=== PATIENT | male | born 1965 | race Caucasian/White ===

== ENCOUNTER 2019-03-01 10:19 | Inpatient (IN) | payer OTHER ==
[2019-03-01 10:54] VITALS: BMI 25.7
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
[2019-03-01] MEDS ORDERED: BISMUTH SUBSALICYLATE 262 MG/15 ML BTL PO PRN (12:07)
[2019-03-01] MEDS ORDERED: MAG HYDROX/AL HYDROX/SIMETH 30 ML UNIT-DOSE CUP PO PRN (12:07)
[2019-03-01] MEDS ORDERED: ACETAMINOPHEN 325 MG TABLET (FP) PO PRN ×2 (12:07)
[2019-03-01] MEDS ORDERED: IBUPROFEN 400 MG TABLET (FP) PO PRN (12:07)
[2019-03-01] MEDS ORDERED: MAGNESIUM HYDROX 2400MG/30ML ORAL SUSPENSION 30 ML CUP PO PRN (12:07)
[2019-03-01] MEDS ORDERED: MENTHOL/PHENOL 1 EACH UD MM PRN (12:07)
[2019-03-01] MEDS ORDERED: MAGNESIUM CITRATE 300 ML BOTTLE PO PRN (12:07)
[2019-03-01] MEDS: chlordiazePOXIDE HCL 25 MG CAPSULE PO PRN (13:23)
[2019-03-01 17:35] LABS: HEMATOCRIT 37.5 % (35.4-49); HEMOGLOBIN 12.5 GM/dL (11.7-16.9); MCH 34.6 pg (25.7-33.7); MCHC 33.5 g/dl (32.0-35.9); MEAN CELL VOLUME 103.3 fl (80-96); MEAN PLT VOLUME 8.6 fl (7.5-11.1); PLATELET COUNT 164 K/MM3 (134-434); RBC 3.63 M/mm3 (4.00-5.60); RDW 13.4 % (11.9-15.9); WHITE BLOOD COUNT 4.7 K/mm3 (4.0-10.0)
[2019-03-01] MEDS: chlordiazePOXIDE HCL 25 MG CAPSULE PO SCH ×2 (17:38→22:11)
[2019-03-01 17:49] LABS: ALBUMIN 3.4 g/dl (3.4-5.0); BILIRUBIN,TOTAL 0.6 mg/dL (0.2-1); BLOOD UREA NITROGEN 7.3 mg/dL (7-18); CALCIUM 8.7 mg/dL (8.5-10.1); CREATININE 0.7 mg/dL (0.55-1.3); POTASSIUM 4.1 mmol/L (3.5-5.1); TOT PROT 8.2 g/dl (6.4-8.2)
[2019-03-01] MEDS: MELATONIN 5 MG TABLETS PO PRN (22:11)
[2019-03-01] MEDS: METHOCARBAMOL 500 MG TABLET PO PRN (22:11)
[2019-03-01] MEDS: THIAMINE HCL 100 MG TABLET (FP) PO SCH (22:11)
[2019-03-02] MEDS: chlordiazePOXIDE HCL 25 MG CAPSULE PO SCH ×4 (05:54→22:23)
[2019-03-02] MEDS: NICOTINE 14 MG/24 HOURS TOPICAL PATCH TD SCH (10:30)
[2019-03-02] MEDS: PRENATAL VITAMINS W/ FOLIC ACID TABLET (FP) PO SCH (10:30)
--- NOTE | 2019-03-02 10:53 | PN ---
S CIWA - CIWA Score Nausea/Vomitin-No Nausea/No Vomiting Muscle Tremors: 4-Moderate,w/Arms Extend Anxiety: 4-Mod. Anxious/Guarded Agitation: 4-Moderately Restless Paroxysmal Sweats: 3 Orientation: 0-Oriented Tacttile Disturbances: 0-None Auditory Disturbances: 0-None Visual Disturbances: 0-None Headache: 1-Very Mild CIWA-Ar Total Score: 16 BHS Progress Note (SOAP) Subjective: lower back pain d/t fall sweats shakes interrupted sleep irritable headache Objective: 03/02/19 10:44 Vital Signs Temperature 97.7 F 03/02/19 09:36 Pulse Rate 68 03/02/19 09:36 Respiratory Rate 18 03/02/19 09:36 Blood Pressure 125/83 03/02/19 09:36 O2 Sat by Pulse Oximetry (%) Laboratory Tests 03/01/19 03/01/19 03/01/19 12:00 12:00 12:00 WBC 4.7 RBC 3.63 L Hgb 12.5 Hct 37.5 MCV 103.3 H MCH 34.6 H MCHC 33.5 RDW 13.4 Plt Count 164 MPV 8.6 Sodium 137 Potassium 4.1 Chloride 102 Carbon Dioxide 29 Anion Gap 6 L BUN 7.3 Creatinine 0.7 Est GFR (CKD-EPI)AfAm 126.64 Est GFR (CKD-EPI)NonAf 109.27 Random Glucose 93 Calcium 8.7 Total Bilirubin 0.6 AST 154 H ALT 135 H Alkaline Phosphatase 180 H Total Protein 8.2 Albumin 3.4 RPR Titer Nonreactive labs noted elevated liver enzymes; d/c tylenol will repeat labs aaox3 ambulating with cane safely no acute distress Assessment: 03/02/19 10:45 withdrawals Plan: continue detox increase fluids x-ray ordered lidocaine patch motrin 600mg prn
[2019-03-02] MEDS: LIDOCAINE 5% TOPICAL PATCH TP SCH (11:20)
--- NOTE | 2019-03-02 11:53 | EKG ---
Test Reason : Blood Pressure : / mmHG Vent. Rate : 059 BPM Atrial Rate : 059 BPM P-R Int : 128 ms QRS Dur : 078 ms QT Int : 432 ms P-R-T Axes : 021 017 041 degrees QTc Int : 427 ms SINUS BRADYCARDIA WITH SINUS ARRHYTHMIA OTHERWISE NORMAL ECG NO PREVIOUS ECGS AVAILABLE Confirmed by ASA VILLATORO MD ([id number]) on 03/02/2019 11:53:03 AM Referred By: Confirmed By:ASA VILLATORO MD
[2019-03-02] MEDS: chlordiazePOXIDE HCL 25 MG CAPSULE PO PRN (13:09)
[2019-03-02] MEDS: IBUPROFEN 600 MG TABLET (FP) PO PRN (17:56)
[2019-03-02] MEDS: MELATONIN 5 MG TABLETS PO PRN (21:50)
[2019-03-02] MEDS: THIAMINE HCL 100 MG TABLET (FP) PO SCH (21:50)
[2019-03-02] MEDS: METHOCARBAMOL 500 MG TABLET PO PRN (21:50)
[2019-03-02] MEDS: LIDOCAINE PATCH REMOVAL MC SCH (22:23)
[2019-03-03] MEDS: chlordiazePOXIDE HCL 25 MG CAPSULE PO SCH ×4 (06:02→22:05)
[2019-03-03] MEDS: METHOCARBAMOL 500 MG TABLET PO PRN ×2 (09:31→17:11)
[2019-03-03] MEDS: IBUPROFEN 600 MG TABLET (FP) PO PRN ×2 (09:31→17:10)
[2019-03-03] MEDS: NICOTINE 14 MG/24 HOURS TOPICAL PATCH TD SCH (10:39)
[2019-03-03] MEDS: amLODIPine BESYLATE 10 MG TABLET (FP) PO SCH (10:39)
[2019-03-03] MEDS: PRENATAL VITAMINS W/ FOLIC ACID TABLET (FP) PO SCH (10:39)
[2019-03-03] MEDS: LIDOCAINE 5% TOPICAL PATCH TP SCH (10:39)
[2019-03-03] MEDS: BACITRACIN 15 GM TUBE TOPICAL OINTMENT TP SCH (10:40)
--- NOTE | 2019-03-03 12:26 | PN ---
S CIWA - CIWA Score Nausea/Vomitin-No Nausea/No Vomiting Muscle Tremors: 3 Anxiety: 2 Agitation: 3 Paroxysmal Sweats: 2 Orientation: 0-Oriented Tacttile Disturbances: 0-None Auditory Disturbances: 0-None Visual Disturbances: 0-None Headache: 0-None Present CIWA-Ar Total Score: 10 BHS Progress Note (SOAP) Subjective: sweats body aches interrupted sleep agitation Objective: 03/03/19 12:23 Vital Signs Temperature 97 F L 03/03/19 10:21 Pulse Rate 89 03/03/19 10:21 Respiratory Rate 18 03/03/19 10:21 Blood Pressure 163/94 03/03/19 10:21 O2 Sat by Pulse Oximetry (%) Laboratory Tests 03/01/19 03/01/19 03/01/19 12:00 12:00 12:00 WBC 4.7 RBC 3.63 L Hgb 12.5 Hct 37.5 MCV 103.3 H MCH 34.6 H MCHC 33.5 RDW 13.4 Plt Count 164 MPV 8.6 Sodium 137 Potassium 4.1 Chloride 102 Carbon Dioxide 29 Anion Gap 6 L BUN 7.3 Creatinine 0.7 Est GFR (CKD-EPI)AfAm 126.64 Est GFR (CKD-EPI)NonAf 109.27 Random Glucose 93 Calcium 8.7 Total Bilirubin 0.6 AST 154 H ALT 135 H Alkaline Phosphatase 180 H Total Protein 8.2 Albumin 3.4 RPR Titer Nonreactive labs noted hypertension noted; pt states he was diagnosed but stopped taking medication. pt cannot remember the name of medication nor does he have a PCP or a pharmacy. pt will be prescribed a low dose of norvasc during his stay; pt in agreement aaox3 ambulating with cane safely will continue to monitor Assessment: 03/03/19 12:25 withdrawals Plan: continue detox increase fluids norvasc 10mg daily spinal x-ray pending.
[2019-03-03] MEDS: chlordiazePOXIDE HCL 25 MG CAPSULE PO PRN (15:02)
[2019-03-03] MEDS: MELATONIN 5 MG TABLETS PO PRN (22:05)
[2019-03-03] MEDS: THIAMINE HCL 100 MG TABLET (FP) PO SCH (22:05)
[2019-03-03] MEDS: LIDOCAINE PATCH REMOVAL MC SCH (22:16)
[2019-03-04] MEDS ORDERED: chlordiazePOXIDE HCL 10 MG CAPSULE PO PRN
[2019-03-04] MEDS: chlordiazePOXIDE HCL 10 MG CAPSULE PO SCH ×4 (06:11→22:02)
[2019-03-04] MEDS: PRENATAL VITAMINS W/ FOLIC ACID TABLET (FP) PO SCH (10:28)
[2019-03-04] MEDS: amLODIPine BESYLATE 10 MG TABLET (FP) PO SCH (10:28)
[2019-03-04] MEDS: METHOCARBAMOL 500 MG TABLET PO PRN (10:30)
[2019-03-04] MEDS: hydrOXYzine PAMOATE 25 MG CAPSULE (FP) PO PRN (10:36)
[2019-03-04] MEDS: NICOTINE 14 MG/24 HOURS TOPICAL PATCH TD SCH (10:36)
[2019-03-04] MEDS: BACITRACIN 15 GM TUBE TOPICAL OINTMENT TP SCH (10:36)
[2019-03-04] MEDS: LIDOCAINE 5% TOPICAL PATCH TP SCH (10:36)
[2019-03-04] MEDS: METHYL SALICYLATE/MENTHOL OINT 30 GM TUBE TP SCH ×2 (10:45→22:35)
--- NOTE | 2019-03-04 13:38 | PN ---
S CIWA - CIWA Score Nausea/Vomitin-No Nausea/No Vomiting Muscle Tremors: 3 Anxiety: 2 Agitation: 2 Paroxysmal Sweats: 2 Orientation: 0-Oriented Tacttile Disturbances: 0-None Auditory Disturbances: 0-None Visual Disturbances: 0-None Headache: 0-None Present CIWA-Ar Total Score: 9 BHS Progress Note (SOAP) Subjective: sweats chronic back pain knee pain interrupted sleep Objective: 03/04/19 13:39 Vital Signs Temperature 97.5 F L 03/04/19 13:21 Pulse Rate 83 03/04/19 13:21 Respiratory Rate 18 03/04/19 13:21 Blood Pressure 108/74 03/04/19 13:21 O2 Sat by Pulse Oximetry (%) Laboratory Tests 03/01/19 03/01/19 03/01/19 12:00 12:00 12:00 WBC 4.7 RBC 3.63 L Hgb 12.5 Hct 37.5 MCV 103.3 H MCH 34.6 H MCHC 33.5 RDW 13.4 Plt Count 164 MPV 8.6 Sodium 137 Potassium 4.1 Chloride 102 Carbon Dioxide 29 Anion Gap 6 L BUN 7.3 Creatinine 0.7 Est GFR (CKD-EPI)AfAm 126.64 Est GFR (CKD-EPI)NonAf 109.27 Random Glucose 93 Calcium 8.7 Total Bilirubin 0.6 AST 154 H ALT 135 H Alkaline Phosphatase 180 H Total Protein 8.2 Albumin 3.4 RPR Titer Nonreactive lumbar x-ray done; osteoarthritis was diagnosed by radiologist pt encouraged to see an orthopedic after detox; pt in agreement aaox3 ambulating no acute distress Assessment: 03/04/19 13:42 withdrawals Plan: continue detox analgesic balm copy of x-ray placed in chart for pt records.
[2019-03-04] MEDS: LIDOCAINE PATCH REMOVAL MC SCH (22:03)
[2019-03-04] MEDS: MELATONIN 5 MG TABLETS PO PRN (22:03)
[2019-03-04] MEDS: THIAMINE HCL 100 MG TABLET (FP) PO SCH (22:03)
[2019-03-04] MEDS: IBUPROFEN 400 MG TABLET (FP) PO PRN (22:04)
[2019-03-05] MEDS: IBUPROFEN 400 MG TABLET (FP) PO PRN ×2 (04:27→21:58)
[2019-03-05] MEDS: chlordiazePOXIDE HCL 10 MG CAPSULE PO SCH ×2 (06:15→16:59)
[2019-03-05] MEDS: amLODIPine BESYLATE 10 MG TABLET (FP) PO SCH (10:23)
[2019-03-05] MEDS: PRENATAL VITAMINS W/ FOLIC ACID TABLET (FP) PO SCH (10:23)
[2019-03-05] MEDS: hydrOXYzine PAMOATE 25 MG CAPSULE (FP) PO PRN ×2 (10:24→16:59)
[2019-03-05] MEDS: METHYL SALICYLATE/MENTHOL OINT 30 GM TUBE TP SCH ×2 (10:24→23:34)
[2019-03-05] MEDS: METHOCARBAMOL 500 MG TABLET PO PRN (10:24)
[2019-03-05] MEDS: BACITRACIN 15 GM TUBE TOPICAL OINTMENT TP SCH (10:24)
[2019-03-05] MEDS: NICOTINE 14 MG/24 HOURS TOPICAL PATCH TD SCH (10:24)
[2019-03-05] MEDS: LIDOCAINE 5% TOPICAL PATCH TP SCH (10:24)
--- NOTE | 2019-03-05 16:47 | PN ---
S CIWA - CIWA Score Nausea/Vomitin-No Nausea/No Vomiting Muscle Tremors: 2 Anxiety: 1-Mildly Anxious Agitation: 1-Slight > Activity Paroxysmal Sweats: 2 Orientation: 0-Oriented Tacttile Disturbances: 0-None Auditory Disturbances: 0-None Visual Disturbances: 0-None Headache: 0-None Present CIWA-Ar Total Score: 6 BHS Progress Note (SOAP) Subjective: Back pain, tremor, anxious, interrupted sleep. Patient requested for vistaril to be increased to help with anxiety and withdrawal sxs. Objective: 03/05/19 16:46 Last Vital Signs Temp Pulse Resp BP Pulse Ox 96.9 F L 68 18 137/69 03/05/19 15:56 03/05/19 15:56 03/05/19 15:56 03/05/19 15:56 Elevated b/p: has htn, on med Laboratory Tests 03/01/19 03/01/19 03/01/19 12:00 12:00 12:00 WBC 4.7 RBC 3.63 L Hgb 12.5 Hct 37.5 MCV 103.3 H MCH 34.6 H MCHC 33.5 RDW 13.4 Plt Count 164 MPV 8.6 Sodium 137 Potassium 4.1 Chloride 102 Carbon Dioxide 29 Anion Gap 6 L BUN 7.3 Creatinine 0.7 Est GFR (CKD-EPI)AfAm 126.64 Est GFR (CKD-EPI)NonAf 109.27 Random Glucose 93 Calcium 8.7 Total Bilirubin 0.6 AST 154 H ALT 135 H Alkaline Phosphatase 180 H Total Protein 8.2 Albumin 3.4 RPR Titer Nonreactive Labs reviewed: elevated LFTs noted Assessment: 03/05/19 16:47 Withdrawal sxs Noted with HTN and elevated LFTs Plan: Continue detox Encouraged PO water intake Can discharge patient later tomorrow after result of repeated LFTs if trending downward and for him to follow up with PCP HTN: continue norvasc, monitor b/p Elevated LFTs: most likely due to alcoholism, possible HCV; repeat AST/ALT/Alk phos
[2019-03-05] MEDS: THIAMINE HCL 100 MG TABLET (FP) PO SCH (21:56)
[2019-03-05] MEDS: MELATONIN 5 MG TABLETS PO PRN (21:56)
[2019-03-05] MEDS: LIDOCAINE PATCH REMOVAL MC SCH (23:34)
[2019-03-06] MEDS ORDERED: chlordiazePOXIDE HCL 10 MG CAPSULE PO ONE (05:00)
[2019-03-06 10:15] LABS: ALK PHOS 136 U/L (45-117); SGOT/AST 136 U/L (15-37); SGPT/ALT 131 U/L (13-61)
--- NOTE | 2019-03-06 10:33 | DS ---
[facility] Detox Discharge Summary Admission Date: 03/01/19 Discharge Date: 03/06/19 - History Present History: Alcohol Dependence - Physical Exam Results Vital Signs: Vital Signs Temperature 97.3 F L 03/06/19 05:30 Pulse Rate 60 03/06/19 05:30 Respiratory Rate 18 03/06/19 05:30 Blood Pressure 114/65 03/06/19 05:30 O2 Sat by Pulse Oximetry (%) - Treatment Hospital Course: Detox Protocol Followed, Detoxed Safely, Responded well, Discharged Condition Good, Rehab Referral Accepted Patient has Accepted a Rehab Referral to: pt referred to inpatient rehab - Medication Discharge Medications: Ambulatory Orders NK [No Known Home Medication] 03/01/19 - Diagnosis (1) Alcohol dependence with withdrawal Current Visit: Yes Status: Chronic Qualifiers: Complication of substance-induced condition: uncomplicated Qualified Code(s ): F10.230 - Alcohol dependence with withdrawal, uncomplicated (2) Asthma Current Visit: Yes Status: Chronic Qualifiers: Asthma severity: mild Asthma complication type: unspecified (3) Hypertension Current Visit: Yes Status: Chronic Qualifiers: Hypertension type: essential hypertension Qualified Code(s): I10 - Essential (primary) hypertension (4) Osteoarthritis Current Visit: Yes Status: Chronic Qualifiers: Osteoarthritis location: spine Spinal region: unspecified - AMA Did Patient Leave Against Medical Advice: No
[2019-03-06] MEDS: PRENATAL VITAMINS W/ FOLIC ACID TABLET (FP) PO SCH (10:52)
[2019-03-06] MEDS: amLODIPine BESYLATE 10 MG TABLET (FP) PO SCH (10:52)
[2019-03-06] MEDS: METHYL SALICYLATE/MENTHOL OINT 30 GM TUBE TP SCH (10:52)
[2019-03-06] MEDS: BACITRACIN 15 GM TUBE TOPICAL OINTMENT TP SCH (10:52)
[2019-03-06] MEDS: LIDOCAINE 5% TOPICAL PATCH TP SCH (10:52)
[2019-03-06] MEDS: NICOTINE 14 MG/24 HOURS TOPICAL PATCH TD SCH (10:53)
[2019-03-06] MEDS: hydrOXYzine PAMOATE 25 MG CAPSULE (FP) PO PRN (10:55)
[2019-03-06] MEDS: METHOCARBAMOL 500 MG TABLET PO PRN (11:50)
[2019-03-06 14:03] VITALS: BP 126/82; PULSE 88; TEMP 97.5
== END 2019-03-06 15:10 | disposition other institution (70) | DRG 775 ==
LOC: YASAS 10:19 → Y6N 12:37
PROVIDERS: ADMIT Allergy & Immunology; ATTEND Allergy & Immunology
PROC: HZ2ZZZZ Detoxification Services for Substance Abuse Treatment (ICD-10-PCS; principal; 2019-03-01)
DX: F10.230 Alcohol dependence with withdrawal, uncomplicated (principal); F17.210 Nicotine dependence, cigarettes, uncomplicated; I10 Essential (primary) hypertension; J45.909 Unspecified asthma, uncomplicated; M19.90 Unspecified osteoarthritis, unspecified site; R94.5 Abnormal results of liver function studies; Z59.0 Homelessness
CPT/HCPCS: 36415; 72100-TC-FY; 80053; 84075; 84450; 84460; 85027; 86593; 93005; 93010

== ENCOUNTER 2019-03-06 15:14 | Inpatient (IN) | payer OTHER ==
--- NOTE | 2019-03-06 13:00 | HP ---
[facility] Rehab Assess/Revision - Admission History Admitted to Rehab from[facility] - Findings Detox History & Physical reviewed: Yes Concur with findings: Yes Inpatient Rehab Admission - Rehab Decision to Admit Inpatient rehab admission?: Yes - Initial Determination Are CD services needed?: Yes Free of communicable disease: Yes Not in need of hospitalization: Yes - Rehab Admission Criteria Previous failed treatment: Yes Poor recovery environment: Yes Comorbidities: Yes Lacks judgement: Yes Patient is meeting Inpatient Rehab admission criteria:: Yes
[2019-03-06] MEDS ORDERED: MENTHOL/PHENOL 1 EACH UD MM PRN (15:45)
[2019-03-06] MEDS ORDERED: MAG HYDROX/AL HYDROX/SIMETH 30 ML UNIT-DOSE CUP PO PRN (15:45)
[2019-03-06] MEDS ORDERED: P-EPHED 60MG/TRIPROLIDI 2.5MG TABLET PO PRN (15:45)
[2019-03-06] MEDS ORDERED: guaiFENesin 200 MG/10 ML 10 ML UNIT-DOSE CUPS PO PRN (15:45)
[2019-03-06] MEDS ORDERED: LOPERAMIDE HCL 2 MG CAPSULE PO PRN (15:45)
[2019-03-06] MEDS ORDERED: MAGNESIUM CITRATE 300 ML BOTTLE PO PRN (15:45)
[2019-03-06] MEDS ORDERED: NICOTINE POLACRILEX 2 MG GUM BUC PRN (15:45)
[2019-03-06] MEDS ORDERED: MAGNESIUM HYDROX 2400MG/30ML ORAL SUSPENSION 30 ML CUP PO PRN (15:45)
--- NOTE | 2019-03-06 15:47 | PN ---
[facility] Progress Note Note: Patient transferred from [address] [place] [address] to rehab for alcohol dependence. PMH includes HTN, tobacco dependence and asthma. Labs reviewed. Has elevated LFTS, will repeat level in 48 hours.
[2019-03-06] MEDS: IBUPROFEN 400 MG TABLET (FP) PO PRN (16:43)
[2019-03-06] MEDS: THIAMINE HCL 100 MG TABLET (FP) PO SCH (21:16)
[2019-03-06] MEDS: MELATONIN 5 MG TABLETS PO PRN (21:16)
[2019-03-06] MEDS: ACETAMINOPHEN 325 MG TABLET (FP) PO PRN (21:16)
[2019-03-07] MEDS: IBUPROFEN 400 MG TABLET (FP) PO PRN ×2 (05:45→21:23)
[2019-03-07] MEDS: amLODIPine BESYLATE 10 MG TABLET (FP) PO SCH (10:00)
[2019-03-07] MEDS: NICOTINE 14 MG/24 HOURS TOPICAL PATCH TD SCH (10:00)
[2019-03-07] MEDS: PRENATAL VITAMINS W/ FOLIC ACID TABLET (FP) PO SCH (10:00)
[2019-03-07] MEDS: hydrOXYzine PAMOATE 50 MG CAPSULE (FP) PO PRN (10:01)
--- NOTE | 2019-03-07 10:54 | PN ---
S Progress Note Note: Pt states he fell down and has back pain. Would like Tyler whitaker and cream for face. PT states he is homeless- looking for [facility] and also for perm housing. Would like the medications given at detox to be continued here in rehab : BAcitracin ordered Aveeno ordered Lidoderm patch
[2019-03-07] MEDS: LIDOCAINE 5% TOPICAL PATCH TP SCH (13:06)
[2019-03-07] MEDS: BACITRACIN 15 GM TUBE TOPICAL OINTMENT TP SCH (13:07)
[2019-03-07] MEDS: MELATONIN 5 MG TABLETS PO PRN (21:23)
[2019-03-07] MEDS: THIAMINE HCL 100 MG TABLET (FP) PO SCH (21:23)
[2019-03-07] MEDS: LIDOCAINE PATCH REMOVAL MC SCH (21:23)
[2019-03-08] MEDS: IBUPROFEN 400 MG TABLET (FP) PO PRN ×2 (06:25→21:13)
[2019-03-08] MEDS: amLODIPine BESYLATE 10 MG TABLET (FP) PO SCH (10:14)
[2019-03-08] MEDS: PRENATAL VITAMINS W/ FOLIC ACID TABLET (FP) PO SCH (10:14)
[2019-03-08] MEDS: NICOTINE 14 MG/24 HOURS TOPICAL PATCH TD SCH (10:15)
[2019-03-08] MEDS: LIDOCAINE 5% TOPICAL PATCH TP SCH (10:15)
[2019-03-08] MEDS: hydrOXYzine PAMOATE 50 MG CAPSULE (FP) PO PRN ×2 (10:16→21:13)
[2019-03-08] MEDS: ACETAMINOPHEN 325 MG TABLET (FP) PO PRN (10:17)
[2019-03-08] MEDS: BACITRACIN 15 GM TUBE TOPICAL OINTMENT TP SCH (10:19)
[2019-03-08 12:11] LABS: ALBUMIN 3.2 g/dl (3.4-5.0); BILIRUBIN,TOTAL 0.4 mg/dL (0.2-1); BLOOD UREA NITROGEN 13.3 mg/dL (7-18); CALCIUM 9.1 mg/dL (8.5-10.1); CREATININE 0.9 mg/dL (0.55-1.3); POTASSIUM 4.3 mmol/L (3.5-5.1)
[2019-03-08] MEDS: LIDOCAINE PATCH REMOVAL MC SCH (21:12)
[2019-03-08] MEDS: MELATONIN 5 MG TABLETS PO PRN (21:12)
[2019-03-08] MEDS: THIAMINE HCL 100 MG TABLET (FP) PO SCH (21:12)
--- NOTE | 2019-03-09 10:05 | PN ---
[facility] Progress Note Note: Pt c/o anxiety and requests to psych consult. Nurse Mayra reports that patient was crying yesterday due to recent loss of . Repeat labs reviewed. Vital Signs - 24 hr 03/09/19 03/09/19 03/09/19 00:30 03:30 06:48 Temperature 97.6 F Pulse Rate 79 Respiratory 18 18 18 Rate Blood Pressure 121/81 03/09/19 09:30 Temperature Pulse Rate 88 Respiratory 18 Rate Blood Pressure 114/80 Laboratory Tests 03/08/19 08:20 Sodium 137 Potassium 4.3 Chloride 106 Carbon Dioxide 25 Anion Gap 6 L BUN 13.3 Creatinine 0.9 Est GFR (CKD-EPI)AfAm 114.21 Est GFR (CKD-EPI)NonAf 98.54 Random Glucose 146 H Calcium 9.1 Total Bilirubin 0.4 AST 137 H ALT 136 H Alkaline Phosphatase 140 H Total Protein 8.0 Albumin 3.2 L LFTs still elevated A/P s/p detox hx alcohol use disorder hx HTN Recent Loss of family member Maintain safety follow up with psych consult increase po fluids.
[2019-03-09] MEDS: BACITRACIN 15 GM TUBE TOPICAL OINTMENT TP SCH ×2 (10:08→21:21)
[2019-03-09] MEDS: amLODIPine BESYLATE 10 MG TABLET (FP) PO SCH (10:08)
[2019-03-09] MEDS: LIDOCAINE 5% TOPICAL PATCH TP SCH (10:08)
[2019-03-09] MEDS: PRENATAL VITAMINS W/ FOLIC ACID TABLET (FP) PO SCH (10:08)
[2019-03-09] MEDS: hydrOXYzine PAMOATE 50 MG CAPSULE (FP) PO PRN (10:09)
[2019-03-09] MEDS: NICOTINE 14 MG/24 HOURS TOPICAL PATCH TD SCH (10:09)
[2019-03-09] MEDS ORDERED: METHOCARBAMOL 500 MG TABLET PO ONE (10:22)
[2019-03-09] MEDS: IBUPROFEN 600 MG TABLET (FP) PO PRN ×2 (14:28→21:21)
[2019-03-09] MEDS: MELATONIN 5 MG TABLETS PO PRN (21:20)
[2019-03-09] MEDS: LIDOCAINE PATCH REMOVAL MC SCH (21:20)
[2019-03-09] MEDS: THIAMINE HCL 100 MG TABLET (FP) PO SCH (21:20)
[2019-03-10] MEDS: IBUPROFEN 600 MG TABLET (FP) PO PRN ×2 (06:07→21:09)
[2019-03-10] MEDS: COLLOIDAL OATMEAL 1 BAR EACH TP PRN (06:07)
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
[2019-03-10] MEDS: PRENATAL VITAMINS W/ FOLIC ACID TABLET (FP) PO SCH (10:06)
[2019-03-10] MEDS: LIDOCAINE 5% TOPICAL PATCH TP SCH (10:06)
[2019-03-10] MEDS: amLODIPine BESYLATE 10 MG TABLET (FP) PO SCH (10:06)
[2019-03-10] MEDS: NICOTINE 14 MG/24 HOURS TOPICAL PATCH TD SCH (10:06)
[2019-03-10] MEDS: BACITRACIN 15 GM TUBE TOPICAL OINTMENT TP SCH ×2 (10:07→21:11)
[2019-03-10] MEDS: cloNIDine HCL 0.1 MG TABLET PO PRN (10:08)
[2019-03-10] MEDS: hydrOXYzine PAMOATE 50 MG CAPSULE (FP) PO PRN ×2 (10:09→21:10)
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
[2019-03-10] MEDS: THIAMINE HCL 100 MG TABLET (FP) PO SCH (21:09)
[2019-03-10] MEDS: MELATONIN 5 MG TABLETS PO PRN (21:09)
[2019-03-10] MEDS: LIDOCAINE PATCH REMOVAL MC SCH (21:09)
[2019-03-11] MEDS: IBUPROFEN 600 MG TABLET (FP) PO PRN ×3 (06:27→21:25)
[2019-03-11] MEDS: hydrOXYzine PAMOATE 50 MG CAPSULE (FP) PO PRN ×2 (10:11→21:15)
[2019-03-11] MEDS: BACITRACIN 15 GM TUBE TOPICAL OINTMENT TP SCH ×2 (10:11→21:13)
[2019-03-11] MEDS: PRENATAL VITAMINS W/ FOLIC ACID TABLET (FP) PO SCH (10:11)
[2019-03-11] MEDS: amLODIPine BESYLATE 10 MG TABLET (FP) PO SCH (10:11)
[2019-03-11] MEDS: cloNIDine HCL 0.1 MG TABLET PO PRN (10:11)
[2019-03-11] MEDS: LIDOCAINE 5% TOPICAL PATCH TP SCH (10:12)
[2019-03-11] MEDS: NICOTINE 14 MG/24 HOURS TOPICAL PATCH TD SCH (10:12)
[2019-03-11] MEDS: THIAMINE HCL 100 MG TABLET (FP) PO SCH (21:13)
[2019-03-11] MEDS: LIDOCAINE PATCH REMOVAL MC SCH (21:13)
[2019-03-11] MEDS: MELATONIN 5 MG TABLETS PO PRN (21:15)
[2019-03-12] MEDS: IBUPROFEN 600 MG TABLET (FP) PO PRN ×2 (05:57→12:02)
[2019-03-12] MEDS: hydrOXYzine PAMOATE 50 MG CAPSULE (FP) PO PRN ×3 (05:59→14:28)
[2019-03-12] MEDS: COLLOIDAL OATMEAL 1 BAR EACH TP PRN (06:32)
[2019-03-12] MEDS: cloNIDine HCL 0.1 MG TABLET PO PRN (10:04)
[2019-03-12] MEDS: PRENATAL VITAMINS W/ FOLIC ACID TABLET (FP) PO SCH (10:04)
[2019-03-12] MEDS: amLODIPine BESYLATE 10 MG TABLET (FP) PO SCH (10:04)
[2019-03-12] MEDS: BACITRACIN 15 GM TUBE TOPICAL OINTMENT TP SCH ×2 (10:04→21:55)
[2019-03-12] MEDS: LIDOCAINE 5% TOPICAL PATCH TP SCH (10:05)
[2019-03-12] MEDS: NICOTINE 14 MG/24 HOURS TOPICAL PATCH TD SCH (10:05)
[2019-03-12] MEDS: THIAMINE HCL 100 MG TABLET (FP) PO SCH (21:54)
[2019-03-12] MEDS: MELATONIN 5 MG TABLETS PO PRN (21:55)
[2019-03-12] MEDS: LIDOCAINE PATCH REMOVAL MC SCH (21:55)
[2019-03-13] MEDS: hydrOXYzine PAMOATE 50 MG CAPSULE (FP) PO PRN ×3 (09:58→21:31)
[2019-03-13] MEDS: LIDOCAINE 5% TOPICAL PATCH TP SCH (09:58)
[2019-03-13] MEDS: PRENATAL VITAMINS W/ FOLIC ACID TABLET (FP) PO SCH (09:58)
[2019-03-13] MEDS: BACITRACIN 15 GM TUBE TOPICAL OINTMENT TP SCH ×2 (09:58→21:31)
[2019-03-13] MEDS: amLODIPine BESYLATE 10 MG TABLET (FP) PO SCH (09:59)
[2019-03-13] MEDS: IBUPROFEN 600 MG TABLET (FP) PO PRN ×2 (09:59→21:31)
[2019-03-13] MEDS: cloNIDine HCL 0.1 MG TABLET PO PRN (09:59)
[2019-03-13] MEDS: NICOTINE 14 MG/24 HOURS TOPICAL PATCH TD SCH (10:02)
[2019-03-13 12:31] LABS: BILIRUBIN,TOTAL 0.4 mg/dL (0.2-1); BLOOD UREA NITROGEN 16.4 mg/dL (7-18); CALCIUM 8.9 mg/dL (8.5-10.1); CREATININE 0.9 mg/dL (0.55-1.3); POTASSIUM 4.7 mmol/L (3.5-5.1); TOT PROT 7.1 g/dl (6.4-8.2)
--- NOTE | 2019-03-13 14:48 | PN ---
[facility] Progress Note Note: Vital Signs Temperature 98 F 03/13/19 06:51 Pulse Rate 83 03/13/19 09:30 Respiratory Rate 18 03/13/19 09:30 Blood Pressure 117/67 03/13/19 09:30 O2 Sat by Pulse Oximetry (%) Laboratory Tests 03/08/19 03/13/19 08:20 07:25 Sodium 137 136 Potassium 4.3 4.7 Chloride 106 104 Carbon Dioxide 25 29 Anion Gap 6 L 3 L BUN 13.3 16.4 Creatinine 0.9 0.9 Est GFR (CKD-EPI)AfAm 114.21 114.21 Est GFR (CKD-EPI)NonAf 98.54 98.54 Random Glucose 146 H 77 Calcium 9.1 8.9 Total Bilirubin 0.4 0.4 AST 137 H 112 H ALT 136 H 125 H Alkaline Phosphatase 140 H 150 H Total Protein 8.0 7.1 Albumin 3.2 L 3.0 L Patient seen for follow up labs. Patient noted sleeping in bed this morning and did not go to morning group. Patient states " my back hurts but I will go to group". Also requested psych follow up for anxiety. ROS: + lbp-level 08/31, denies shakes, sweating and n/v/d PE: alert and oriented x 3 skin warm and dry +perrla, eoms intact bl ext full rom, amb ad paul no tremors mildly anxious A/P: LBP-treated with lidocaine patch elevated lfts anxiety LFTS improving continue oral fluids psych consult for anxiety
[2019-03-13] MEDS: MELATONIN 5 MG TABLETS PO PRN (21:28)
[2019-03-13] MEDS: THIAMINE HCL 100 MG TABLET (FP) PO SCH (21:28)
[2019-03-13] MEDS: LIDOCAINE PATCH REMOVAL MC SCH (21:32)
[2019-03-14] MEDS: amLODIPine BESYLATE 10 MG TABLET (FP) PO SCH (10:06)
[2019-03-14] MEDS: LIDOCAINE 5% TOPICAL PATCH TP SCH (10:06)
[2019-03-14] MEDS: PRENATAL VITAMINS W/ FOLIC ACID TABLET (FP) PO SCH (10:06)
[2019-03-14] MEDS: cloNIDine HCL 0.1 MG TABLET PO PRN (10:06)
[2019-03-14] MEDS: BACITRACIN 15 GM TUBE TOPICAL OINTMENT TP SCH ×2 (10:06→21:11)
[2019-03-14] MEDS: IBUPROFEN 600 MG TABLET (FP) PO PRN ×2 (10:07→21:14)
[2019-03-14] MEDS: NICOTINE 14 MG/24 HOURS TOPICAL PATCH TD SCH (10:07)
[2019-03-14] MEDS: hydrOXYzine PAMOATE 50 MG CAPSULE (FP) PO PRN ×3 (10:08→21:13)
--- NOTE | 2019-03-14 10:22 | PN ---
Psychiatric Progress Note Vital Signs: Vital Signs Period Temp Pulse Resp BP Sys/Escamilla Pulse Ox Last 24 Hr 97.9 F 86 18-18 104/65 Date of Session: 03/14/19 Chief Complaint:: "I'm feeling depressed and anxious" HPI: 53 years old Hiapanic male with history of Mood Disorder R/O Bipolar Disorder and PMH of Asthma, HTN admitted from detox on 03/06/19 for inpatient rehabilitation for alcohol Current Medications: Active Medications Generic Name Dose Route Start Last Admin Trade Name Freq PRN Reason Stop Dose Admin Al Hydroxide/Mg Hydroxide 30 ml 03/06/19 15:45 Mylanta Oral Suspension - PO Q6H PRN DYSPEPSIA Amlodipine Besylate 10 mg 03/07/19 10:00 03/14/19 10:06 Norvasc - PO 10 mg DAILY ANA Administration Bacitracin 1 applic 03/09/19 22:00 03/14/19 10:06 Bacitracin - TP 1 applic BID ANA Administration Clonidine 0.1 mg 03/10/19 09:56 03/14/19 10:06 Catapres - PO 0.1 mg BID PRN Administration ANXIETY Colloidal Oatmeal 1 applic 03/07/19 10:58 03/12/19 06:32 Aveeno Soap - TP 1 applic DAILY PRN Administration HYGEINE Eucalyptus/Menthol/Phenol/Sorbitol 1 each 03/06/19 15:45 Cepastat Lozenge - MM Q4H PRN SORE THROAT Guaifenesin 10 ml 03/06/19 15:45 Robitussin - PO Q6H PRN COUGH Hydroxyzine Pamoate 50 mg 03/10/19 09:49 03/14/19 10:08 Vistaril - PO 50 mg Q4H PRN Administration ANXIETY Ibuprofen 600 mg 03/09/19 10:21 03/14/19 10:07 Motrin - PO 600 mg Q6H PRN Administration Pain Level 4-6 Lidocaine 1 patch 03/07/19 11:00 03/14/19 10:06 Lidoderm Patch - TP 1 patch DAILY ANA Administration Loperamide HCl 4 mg 03/06/19 15:45 Imodium - PO Q6H PRN DIARRHEA Magnesium Citrate 300 ml 03/06/19 15:45 Citroma - PO Q48H PRN CONSTIPATION Magnesium Hydroxide 30 ml 03/06/19 15:45 Milk Of Magnesia - PO DAILY PRN CONSTIPATION Melatonin 10 mg 03/10/19 11:13 03/13/19 21:28 Melatonin PO 10 mg HS PRN Administration INSOMNIA Miscellaneous 1 each 03/07/19 22:00 03/13/19 21:32 Lidoderm Patch Removal MC 1 each DAILY@2200 ANA Administration Nicotine 14 mg 03/07/19 10:00 03/14/19 10:07 Nicoderm Patch - TD Not Given DAILY ANA Nicotine Polacrilex 2 mg 03/06/19 15:45 Nicorette Gum - BUC Q2H PRN NICOTINE REPLACEMENT RX Multivit/Folic Acid/Iron 1 tab 03/07/19 10:00 03/14/19 10:06 Vitamins (Sjr) - PO 1 tab DAILY ANA Administration Pseudoephedrine/Triprolidine 1 combo 03/06/19 15:45 Actifed - PO TID PRN NASAL CONGESTION Thiamine HCl 100 mg 03/06/19 22:00 03/13/19 21:28 Vitamin B1 - PO 100 mg HS ANA Administration Provider note:: Patient reports that he has not been doing well. Reports that the he has been feeling depressed and anxious. Denies lack of sleep, appetite or concentration as well as feeling hopeless, worthless. According to nursing staff, he participates in unit activities and does not come across as depressed. Mental Status Exam - Mental Status Exam Alert and Oriented to: Time, Place, Person Cognitive Function: Fair Patient Appearance: Well Groomed Mood: Depressed, Anxious Affect: Normal Range Patient Behavior: Cooperative Speech Pattern: Clear Voice Loudness: Normal Thought Process: Intact, Goal Oriented Thought Disorder: Not Present Hallucinations: Denies Suicidal Ideation: Denies Homicidal Ideation: Denies Insight/Judgement: Fair Sleep: Fair Appetite: Good Muscle strength/Tone: Rigidity Gait/Station: Normal Psychiatric Treatment Plan - Problem List (1) Mood disorder Current Visit: Yes (2) Bipolar disorder Current Visit: Yes (3) Alcohol-induced mood disorder Current Visit: Yes (4) Alcohol-induced sleep disorder Current Visit: Yes (5) Alcohol dependence Current Visit: Yes (6) Nicotine dependence Current Visit: Yes (7) Asthma Current Visit: No Qualifiers: Asthma severity: mild Asthma complication type: unspecified (8) Hypertension Current Visit: No Qualifiers: Hypertension type: essential hypertension Qualified Code(s): I10 - Essential (primary) hypertension (9) Osteoarthritis Current Visit: No Qualifiers: Osteoarthritis location: spine Spinal region: unspecified Initial treatment plan: 1) Continue Vistaril 50 mg po Q 4hrs prn for anxiety. 2 ) Continue inpatient rehabilitation
[2019-03-14] MEDS: THIAMINE HCL 100 MG TABLET (FP) PO SCH (21:10)
[2019-03-14] MEDS: MELATONIN 5 MG TABLETS PO PRN (21:10)
[2019-03-14] MEDS: LIDOCAINE PATCH REMOVAL MC SCH (21:11)
[2019-03-15] MEDS: cloNIDine HCL 0.1 MG TABLET PO PRN (09:33)
[2019-03-15] MEDS: amLODIPine BESYLATE 10 MG TABLET (FP) PO SCH (09:33)
[2019-03-15] MEDS: PRENATAL VITAMINS W/ FOLIC ACID TABLET (FP) PO SCH (09:33)
[2019-03-15] MEDS: hydrOXYzine PAMOATE 50 MG CAPSULE (FP) PO PRN (09:34)
[2019-03-15] MEDS: IBUPROFEN 600 MG TABLET (FP) PO PRN (09:35)
[2019-03-15] MEDS: LIDOCAINE 5% TOPICAL PATCH TP SCH (09:37)
[2019-03-15] MEDS: NICOTINE 14 MG/24 HOURS TOPICAL PATCH TD SCH (10:29)
[2019-03-15] MEDS: BACITRACIN 15 GM TUBE TOPICAL OINTMENT TP SCH ×2 (10:30→21:14)
--- NOTE | 2019-03-15 11:24 | PN ---
[facility] Progress Note (SOAP) Subjective: Patient c/o pain, lower right ankle, hx of surgery in that ankle. Objective: 03/15/19 11:20 Vital Signs Period Temp Pulse Resp BP Sys/Escamilla Pulse Ox Last 24 Hr 97.5 F 83-86 18-18 127-128/68-72 P/E: General: no apparent distress HEENTM: PERRLA Neck: supple Lungs: clear Heart: s1 s2 Extremities/skin: healed surgical scar, right ankle, posterior aspect, no edema noted, +Pulse Skin: raised, red postules scattered on arms and legs 03/15/19 11:22 Assessment: Pain, right ankle Rash, allergic 03/15/19 11:22 Plan: Ankle pain: edith-whitaker & muscle relaxant ordered, motrin increased Rash: hydrocortisone ordered.
[2019-03-15] MEDS: METHYL SALICYLATE/MENTHOL OINT 30 GM TUBE TP SCH (11:44)
[2019-03-15] MEDS: CYCLOBENZAPRINE HCL 10 MG TABLET (FP) PO SCH ×2 (13:48→21:11)
[2019-03-15] MEDS: MELATONIN 5 MG TABLETS PO PRN (21:11)
[2019-03-15] MEDS: THIAMINE HCL 100 MG TABLET (FP) PO SCH (21:11)
[2019-03-15] MEDS: LIDOCAINE PATCH REMOVAL MC SCH (21:12)
[2019-03-16] MEDS: HYDROCORTISONE 1% TOPICAL CREAM 30 GM TUBE TP PRN ×2 (05:45→09:41)
[2019-03-16] MEDS: CYCLOBENZAPRINE HCL 10 MG TABLET (FP) PO SCH ×3 (05:45→21:21)
[2019-03-16] MEDS: amLODIPine BESYLATE 10 MG TABLET (FP) PO SCH (09:40)
[2019-03-16] MEDS: PRENATAL VITAMINS W/ FOLIC ACID TABLET (FP) PO SCH (09:40)
[2019-03-16] MEDS: cloNIDine HCL 0.1 MG TABLET PO PRN (09:40)
[2019-03-16] MEDS: hydrOXYzine PAMOATE 50 MG CAPSULE (FP) PO PRN ×2 (09:40→21:21)
[2019-03-16] MEDS: LIDOCAINE 5% TOPICAL PATCH TP SCH (09:41)
[2019-03-16] MEDS: NICOTINE 14 MG/24 HOURS TOPICAL PATCH TD SCH (09:43)
[2019-03-16] MEDS: BACITRACIN 15 GM TUBE TOPICAL OINTMENT TP SCH ×2 (09:44→21:21)
[2019-03-16] MEDS: METHYL SALICYLATE/MENTHOL OINT 30 GM TUBE TP SCH (09:44)
[2019-03-16] MEDS: THIAMINE HCL 100 MG TABLET (FP) PO SCH (21:21)
[2019-03-16] MEDS: MELATONIN 5 MG TABLETS PO PRN (21:21)
[2019-03-16] MEDS: LIDOCAINE PATCH REMOVAL MC SCH (22:03)
[2019-03-17] MEDS: CYCLOBENZAPRINE HCL 10 MG TABLET (FP) PO SCH ×3 (06:09→21:16)
[2019-03-17] MEDS: COLLOIDAL OATMEAL 1 BAR EACH TP PRN (06:09)
[2019-03-17] MEDS: cloNIDine HCL 0.1 MG TABLET PO PRN (09:51)
[2019-03-17] MEDS: amLODIPine BESYLATE 10 MG TABLET (FP) PO SCH (09:51)
[2019-03-17] MEDS: LIDOCAINE 5% TOPICAL PATCH TP SCH (09:51)
[2019-03-17] MEDS: PRENATAL VITAMINS W/ FOLIC ACID TABLET (FP) PO SCH (09:51)
[2019-03-17] MEDS: METHYL SALICYLATE/MENTHOL OINT 30 GM TUBE TP SCH (09:52)
[2019-03-17] MEDS: hydrOXYzine PAMOATE 50 MG CAPSULE (FP) PO PRN (09:52)
[2019-03-17] MEDS: NICOTINE 14 MG/24 HOURS TOPICAL PATCH TD SCH (09:53)
[2019-03-17] MEDS: BACITRACIN 15 GM TUBE TOPICAL OINTMENT TP SCH ×2 (09:55→21:19)
[2019-03-17] MEDS: THIAMINE HCL 100 MG TABLET (FP) PO SCH (21:15)
[2019-03-17] MEDS: MELATONIN 5 MG TABLETS PO PRN (21:16)
[2019-03-17] MEDS: LIDOCAINE PATCH REMOVAL MC SCH (21:16)
[2019-03-17] MEDS ORDERED: PT OWN MED DRAWER 7, Y5N ONE (21:18)
[2019-03-18] MEDS: HYDROCORTISONE 1% TOPICAL CREAM 30 GM TUBE TP PRN (06:16)
[2019-03-18] MEDS: CYCLOBENZAPRINE HCL 10 MG TABLET (FP) PO SCH ×3 (06:33→21:25)
[2019-03-18] MEDS: amLODIPine BESYLATE 10 MG TABLET (FP) PO SCH (09:33)
[2019-03-18] MEDS: NICOTINE 14 MG/24 HOURS TOPICAL PATCH TD SCH (09:33)
[2019-03-18] MEDS: LIDOCAINE 5% TOPICAL PATCH TP SCH (09:34)
[2019-03-18] MEDS: METHYL SALICYLATE/MENTHOL OINT 30 GM TUBE TP SCH (09:34)
[2019-03-18] MEDS: BACITRACIN 15 GM TUBE TOPICAL OINTMENT TP SCH ×2 (09:34→21:27)
[2019-03-18] MEDS: PRENATAL VITAMINS W/ FOLIC ACID TABLET (FP) PO SCH (09:34)
[2019-03-18] MEDS: hydrOXYzine PAMOATE 50 MG CAPSULE (FP) PO PRN ×2 (11:56→21:26)
[2019-03-18] MEDS: THIAMINE HCL 100 MG TABLET (FP) PO SCH (21:25)
[2019-03-18] MEDS: IBUPROFEN 400 MG TABLET (FP) PO PRN (21:26)
[2019-03-18] MEDS: LIDOCAINE PATCH REMOVAL MC SCH (21:27)
[2019-03-19] MEDS: CYCLOBENZAPRINE HCL 10 MG TABLET (FP) PO SCH ×3 (06:23→21:11)
[2019-03-19] MEDS: LIDOCAINE 5% TOPICAL PATCH TP SCH (09:38)
[2019-03-19] MEDS: NICOTINE 14 MG/24 HOURS TOPICAL PATCH TD SCH (09:38)
[2019-03-19] MEDS: METHYL SALICYLATE/MENTHOL OINT 30 GM TUBE TP SCH (09:39)
[2019-03-19] MEDS: BACITRACIN 15 GM TUBE TOPICAL OINTMENT TP SCH ×2 (09:39→21:12)
[2019-03-19] MEDS: amLODIPine BESYLATE 10 MG TABLET (FP) PO SCH (09:39)
[2019-03-19] MEDS: PRENATAL VITAMINS W/ FOLIC ACID TABLET (FP) PO SCH (09:39)
[2019-03-19] MEDS: HYDROCORTISONE 1% TOPICAL CREAM 30 GM TUBE TP PRN (09:40)
[2019-03-19] MEDS: hydrOXYzine PAMOATE 50 MG CAPSULE (FP) PO PRN ×2 (09:40→21:12)
[2019-03-19] MEDS: MELATONIN 5 MG TABLETS PO PRN (21:11)
[2019-03-19] MEDS: THIAMINE HCL 100 MG TABLET (FP) PO SCH (21:11)
[2019-03-19] MEDS: LIDOCAINE PATCH REMOVAL MC SCH (21:12)
[2019-03-20] MEDS: CYCLOBENZAPRINE HCL 10 MG TABLET (FP) PO SCH ×3 (06:23→21:13)
[2019-03-20] MEDS ORDERED: ALBUTEROL SO4 2.5/IPRATROPIUM 0.5 INH SOL 3 ML VIAL.NEB. NEB PRN (08:04)
--- NOTE | 2019-03-20 08:19 | PN ---
[facility] Progress Note Note: ASKED TYO SEE PATIENT FOR COMPLAINT OF CHEST PAIN. CLIENT REPORTS CHEST PAIN SINCE LAST NIGHT GIVEN ROBAXIN W/O RELIEF. CONT TO COMPLAIN OF CHEST PAIN . POINT ACROSS HIS DIAPHRAGM AND LEFT CHEST WALL. REPORTS SOB, DENIES N,V, FEVER, CHILLS, NUMBNESS Vital Signs Temperature 98.5 F 03/20/19 07:42 Pulse Rate 95 H 03/20/19 07:42 Respiratory Rate 03/20/19 07:42 Blood Pressure 120/77 03/20/19 07:42 O2 Sat by Pulse Oximetry (%) PATIENT SEEN LYING IN BED WITH FACIAL GRIMACE AND SOB. HE IS A/O X3 SKIN IS CLAMMY, HANDS TREMULOUS CHEST CTAB, O2 SAT 97% CV- RRR A- GERD VS C.P. P- EKG SINUS RHYTHM WITH PSVC AND PVC WHEN COMPARED WITH PREVIOUS CHANGES NOTED 03/01/2019 EKG NSR, RAJNI MYLANTA NOW DUONEB X 1 DOSE CASE D/W DR. SMART RECOMMENDS TRANSFERRING CLIENT TO [facility] FOR CARDIAC W/U 2/2 TO CHANGES NOTED ON EKG CLIENT ENDORSED TRO DR. BONILLA AT [facility] ER
[2019-03-20] MEDS: METHYL SALICYLATE/MENTHOL OINT 30 GM TUBE TP SCH (11:00)
[2019-03-20] MEDS: BACITRACIN 15 GM TUBE TOPICAL OINTMENT TP SCH ×2 (11:00→21:13)
[2019-03-20] MEDS: NICOTINE 14 MG/24 HOURS TOPICAL PATCH TD SCH (11:00)
[2019-03-20] MEDS: LIDOCAINE 5% TOPICAL PATCH TP SCH (11:00)
[2019-03-20] MEDS: PRENATAL VITAMINS W/ FOLIC ACID TABLET (FP) PO SCH (11:02)
[2019-03-20] MEDS: amLODIPine BESYLATE 10 MG TABLET (FP) PO SCH (11:02)
--- NOTE | 2019-03-20 14:21 | EKG ---
Test Reason : Blood Pressure : / mmHG Vent. Rate : 092 BPM Atrial Rate : 092 BPM P-R Int : 150 ms QRS Dur : 078 ms QT Int : 368 ms P-R-T Axes : 039 003 019 degrees QTc Int : 455 ms NORMAL SINUS RHYTHM NORMAL ECG WHEN COMPARED WITH ECG OF 01-MAR-2019 19:36, VENT. RATE HAS INCREASED BY 33 BPM Confirmed by Emily Fair ([id number]) on 03/20/2019 2:21:15 PM Referred By: Confirmed By:Emily Fair
--- NOTE | 2019-03-20 16:22 | PN ---
[facility] Progress Note Note: Patient returned to [facility] after transfer to ED for chest pain this morning. Patient evaluated at ER and had EKG done demonstrating rate 92, NM 150, QRS 78, QTc 455, normal axis. Patient cleared to return to [facility]. Vital Signs Period Temp Pulse Resp BP Sys/Escamilla Pulse Ox Last 24 Hr 98.5 F-98.8 F 79-95 18-20 115-120/72-77 ROS: denies chest pain, sob, dizziness and headache. PE: alert and oriented x 3 skin warm and dry car s1s2, rrr resp cta bl, no wheezes or rales ext full rom, amb ad paul no tremors A/P: s/p ER transfer for chest pain alcohol dependence patient medically stable at this time continue rehab services
[2019-03-20] MEDS: IBUPROFEN 400 MG TABLET (FP) PO PRN (18:03)
[2019-03-20] MEDS: THIAMINE HCL 100 MG TABLET (FP) PO SCH (21:10)
[2019-03-20] MEDS: MELATONIN 5 MG TABLETS PO PRN (21:11)
[2019-03-20] MEDS: hydrOXYzine PAMOATE 50 MG CAPSULE (FP) PO PRN (21:12)
[2019-03-20] MEDS: LIDOCAINE PATCH REMOVAL MC SCH (21:14)
[2019-03-21] MEDS: CYCLOBENZAPRINE HCL 10 MG TABLET (FP) PO SCH ×3 (06:37→21:20)
[2019-03-21] MEDS: METHYL SALICYLATE/MENTHOL OINT 30 GM TUBE TP SCH (09:41)
[2019-03-21] MEDS: BACITRACIN 15 GM TUBE TOPICAL OINTMENT TP SCH ×2 (09:41→21:21)
[2019-03-21] MEDS: PRENATAL VITAMINS W/ FOLIC ACID TABLET (FP) PO SCH (09:42)
[2019-03-21] MEDS: IBUPROFEN 400 MG TABLET (FP) PO PRN (09:42)
[2019-03-21] MEDS: NICOTINE 14 MG/24 HOURS TOPICAL PATCH TD SCH (09:42)
[2019-03-21] MEDS: LIDOCAINE 5% TOPICAL PATCH TP SCH (09:42)
[2019-03-21] MEDS: amLODIPine BESYLATE 10 MG TABLET (FP) PO SCH (09:42)
[2019-03-21] MEDS: hydrOXYzine PAMOATE 50 MG CAPSULE (FP) PO PRN (09:43)
[2019-03-21] MEDS: HYDROCORTISONE 1% TOPICAL CREAM 30 GM TUBE TP PRN (09:43)
[2019-03-21] MEDS: LIDOCAINE PATCH REMOVAL MC SCH (21:20)
[2019-03-21] MEDS: MELATONIN 5 MG TABLETS PO PRN (21:20)
[2019-03-21] MEDS: THIAMINE HCL 100 MG TABLET (FP) PO SCH (21:20)
[2019-03-22] MEDS: CYCLOBENZAPRINE HCL 10 MG TABLET (FP) PO SCH ×3 (06:34→21:12)
[2019-03-22] MEDS: COLLOIDAL OATMEAL 1 BAR EACH TP PRN (06:34)
[2019-03-22] MEDS: PRENATAL VITAMINS W/ FOLIC ACID TABLET (FP) PO SCH (09:32)
[2019-03-22] MEDS: BACITRACIN 15 GM TUBE TOPICAL OINTMENT TP SCH ×2 (09:32→21:13)
[2019-03-22] MEDS: amLODIPine BESYLATE 10 MG TABLET (FP) PO SCH (09:32)
[2019-03-22] MEDS: NICOTINE 14 MG/24 HOURS TOPICAL PATCH TD SCH (09:33)
[2019-03-22] MEDS: LIDOCAINE 5% TOPICAL PATCH TP SCH (09:33)
[2019-03-22] MEDS: METHYL SALICYLATE/MENTHOL OINT 30 GM TUBE TP SCH (09:33)
[2019-03-22] MEDS: hydrOXYzine PAMOATE 50 MG CAPSULE (FP) PO PRN ×2 (09:35→17:27)
[2019-03-22] MEDS: HYDROCORTISONE 1% TOPICAL CREAM 30 GM TUBE TP PRN (09:36)
[2019-03-22] MEDS: MELATONIN 5 MG TABLETS PO PRN (21:12)
[2019-03-22] MEDS: THIAMINE HCL 100 MG TABLET (FP) PO SCH (21:12)
[2019-03-22] MEDS: LIDOCAINE PATCH REMOVAL MC SCH (21:13)
[2019-03-23] MEDS: CYCLOBENZAPRINE HCL 10 MG TABLET (FP) PO SCH ×3 (06:35→21:29)
[2019-03-23] MEDS: amLODIPine BESYLATE 10 MG TABLET (FP) PO SCH (10:00)
[2019-03-23] MEDS: PRENATAL VITAMINS W/ FOLIC ACID TABLET (FP) PO SCH (10:00)
[2019-03-23] MEDS: LIDOCAINE 5% TOPICAL PATCH TP SCH (10:00)
[2019-03-23] MEDS: hydrOXYzine PAMOATE 50 MG CAPSULE (FP) PO PRN ×2 (10:00→21:31)
[2019-03-23] MEDS: METHYL SALICYLATE/MENTHOL OINT 30 GM TUBE TP SCH (10:00)
[2019-03-23] MEDS: BACITRACIN 15 GM TUBE TOPICAL OINTMENT TP SCH ×2 (10:00→21:32)
[2019-03-23] MEDS: NICOTINE 14 MG/24 HOURS TOPICAL PATCH TD SCH (10:01)
[2019-03-23] MEDS: IBUPROFEN 400 MG TABLET (FP) PO PRN ×2 (10:01→21:31)
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
--- NOTE | 2019-03-23 14:40 | EKG ---
Test Reason : Blood Pressure : / mmHG Vent. Rate : 096 BPM Atrial Rate : 096 BPM P-R Int : 146 ms QRS Dur : 076 ms QT Int : 368 ms P-R-T Axes : 045 002 021 degrees QTc Int : 464 ms SINUS RHYTHM WITH PREMATURE SUPRAVENTRICULAR COMPLEXES AND WITH OCCASIONAL PREMATURE VENTRICULAR COMPLEXES OTHERWISE NORMAL ECG WHEN COMPARED WITH ECG OF 01-MAR-2019 19:36, PREMATURE VENTRICULAR COMPLEXES ARE NOW PRESENT PREMATURE SUPRAVENTRICULAR COMPLEXES ARE NOW PRESENT VENT. RATE HAS INCREASED BY 37 BPM T WAVE AMPLITUDE HAS DECREASED IN LATERAL LEADS Confirmed by ASA VILLATORO MD ([id number]) on 03/23/2019 2:39:50 PM Referred By: Confirmed By:ASA VILLATORO MD
[2019-03-23] MEDS: THIAMINE HCL 100 MG TABLET (FP) PO SCH (21:29)
[2019-03-23] MEDS: MELATONIN 5 MG TABLETS PO PRN (21:29)
[2019-03-23] MEDS: LIDOCAINE PATCH REMOVAL MC SCH (21:30)
[2019-03-24] MEDS: CYCLOBENZAPRINE HCL 10 MG TABLET (FP) PO SCH (05:58)
[2019-03-24 07:02] VITALS: BP 106/73; PULSE 91; TEMP 98
[2019-03-24] MEDS: PRENATAL VITAMINS W/ FOLIC ACID TABLET (FP) PO SCH (09:32)
[2019-03-24] MEDS: amLODIPine BESYLATE 10 MG TABLET (FP) PO SCH (09:32)
[2019-03-24] MEDS: LIDOCAINE 5% TOPICAL PATCH TP SCH (09:34)
[2019-03-24] MEDS: METHYL SALICYLATE/MENTHOL OINT 30 GM TUBE TP SCH (09:34)
[2019-03-24] MEDS: BACITRACIN 15 GM TUBE TOPICAL OINTMENT TP SCH (09:34)
[2019-03-24] MEDS: NICOTINE 14 MG/24 HOURS TOPICAL PATCH TD SCH (09:34)
--- NOTE | 2019-03-24 10:00 | DS ---
[facility] Rehab Discharge Summary - [facility] Rehab Discharge Summary Admission Date: 03/06/19 Discharge Date: 03/24/19 - History Present History: Alcohol dependence - Discharge Physical Exam Vital Signs: Vital Signs Temperature 98.0 F 03/24/19 07:01 Pulse Rate 91 H 03/24/19 07:01 Respiratory Rate 18 03/24/19 07:01 Blood Pressure 106/73 03/24/19 07:01 O2 Sat by Pulse Oximetry (%) - Treatment Discharge Condition: Discharge condition good - Medication Discharge Medications: Ambulatory Orders Amlodipine Besylate [Norvasc -] 10 mg PO DAILY #30 tablet 03/23/19 - Medication-Assisted Treatment (MAT) Medication-Assisted Treatment (MAT): No MAT Follow-up Referral: Patient has aftercare arranged for [facility] at [facility]. Patient left unit with tech, medically stable, denies SI/HI. - Discharge Instructions Diet, activity, other medical instructions: Diet:JONATHAN as tolerated Activity: reg as tolerated Other medical instructions: follow up with PCP as recommended - Follow-up Referral Minutes to complete discharge: 30 - AMA Did Patient Leave Against Medical Advice: No
== END 2019-03-24 09:38 | disposition home or self-care (01) | DRG 772 ==
LOC: YASAS 15:14 → Y3W 15:15
PROVIDERS: ADMIT Neuromusculoskeletal Medicine & OMM; ATTEND Neuromusculoskeletal Medicine & OMM
PROC: HZ42ZZZ Group Counseling for Substance Abuse Treatment, Cognitive-Behavioral (ICD-10-PCS; principal; 2019-03-06)
DX: F10.20 Alcohol dependence, uncomplicated (principal); F17.210 Nicotine dependence, cigarettes, uncomplicated; F10.24 Alcohol dependence with alcohol-induced mood disorder; F10.282 Alcohol dependence with alcohol-induced sleep disorder; F31.9 Bipolar disorder, unspecified; I10 Essential (primary) hypertension; J45.20 Mild intermittent asthma, uncomplicated; M19.90 Unspecified osteoarthritis, unspecified site; M25.571 Pain in right ankle and joints of right foot; M54.5 Low back pain; R07.9 Chest pain, unspecified; R21 Rash and other nonspecific skin eruption; Z87.828 Personal history of other (healed) physical injury and trauma; Z91.410 Personal history of adult physical and sexual abuse; Z59.0 Homelessness
CPT/HCPCS: 36415; 80053; 93005; 93010; 94640; J0735

== ENCOUNTER 2019-03-20 09:07 | Emergency (ER) | payer OTHER ==
[2019-03-20 09:22] VITALS: TEMP 97.5; BMI 25.9
--- NOTE | 2019-03-20 09:25 | PDOC ---
Attending Attestation - Resident Resident Name: Brian Gonzalez - HPI HPI: 03/20/19 11:07 Pt presents to the ED complaining of the acute onset of epigastric pain that awoke him from sleep yesterday night. Pain was constant, non radiating, 9/10 in severity. Denies nausea or vomiting, fever or shortness of breath. Denies prior cardiac history. Currently pain free. - Physicial Exam PE: 03/20/19 11:21 Agree with resident exam. Patient is alert and oriented and in no acute distress. Lungs are clear. CV: rrr no murmurs. Abdomen: soft, non tender, non distended, no guarding or rebound. - Medical Decision Making 03/20/19 11:25 Pt presents to the ED complaining of epigastric pain. Currently chest pain free. EKG is normal. Will check labs and troponin and likely discharge home if troponin is negative.
--- NOTE | 2019-03-20 09:39 | PDOC ---
History of Present Illness - General Chief Complaint: Chest Pain Stated Complaint: CP Time Seen by Provider: 03/20/19 09:25 - History of Present Illness Initial Comments: 53 year old male with PMH of HTN, BPD, OA, and EtOH abuse (currently in rehab) with chest pain starting at 4:30 AM of sudden onset that spanned across her lower chest. Describes the pain as a non-radiating, non-pleuritic, non- exertional pressure. Does admit that he was thinking about his when he went to bed who just recently from an CO. Denies fevers, chills, nausea, vomiting, diarrhea, or other symptoms. 03/20/19 09:37 Past History - Past Medical History Allergies/Adverse Reactions: Allergies Allergy/AdvReac Type Severity Reaction Status Date / Time No Known Allergies Allergy Verified 03/20/19 09:11 Home Medications: Ambulatory Orders NK [No Known Home Medication] 03/01/19 Anemia: No Asthma: Yes Cancer: No Cardiac Disorders: No CVA: No COPD: No CHF: No Dementia: No Diabetes: No GI Disorders: No Disorders: No HTN: Yes (NOT ON MEDICATIONS) Hypercholesterolemia: No Kidney Stones: No Liver Disease: No Seizures: Yes (2019) Thyroid Disease: No - Surgical History Abdominal Surgery: No Appendectomy: No Cardiac Surgery: No Cholecystectomy: No Lung Surgery: No Neurologic Surgery: No Orthopedic Surgery: Yes (RIGHT FOOT SURGERY) - Reproductive History Testicular Surgery: No - Psycho Social/Smoking Cessation Hx Smoking History: Unknown if ever smoked Have you smoked in the past 12 months: No Number of Cigarettes Smoked Daily: 10 Information on smoking cessation initiated: No 'Breaking Loose' booklet given: 03/01/19 Hx Alcohol Use: No Drug/Substance Use Hx: No Hx Substance Use Treatment: Yes Review of Systems - Review of Systems Constitutional: No: Chills, Diaphoresis, Fever, Loss of Appetite HEENTM: No: Eye Pain, Blurred Vision, Tearing Respiratory: No: Cough, Orthopnea, Shortness of Breath Cardiac (ROS): Yes: Chest Pain. No: Edema, Irregular Heart Rate ABD/GI: No: Diarrhea, Nausea, Vomiting : No: Dysuria, Discharge, Frequency Musculoskeletal: No: Back Pain, Gout, Joint Pain Integumentary: No: Lesions, Lumps, Pallor Neurological: No: Headache, Numbness, Paresthesia Psychiatric: No: Anxiety, Depression *Physical Exam - Vital Signs Last Vital Signs Temp Pulse Resp BP Pulse Ox 97.5 F L 101 H 16 122/77 100 03/20/19 09:14 03/20/19 09:14 03/20/19 09:14 03/20/19 09:14 03/20/19 09:14 - Physical Exam General Appearance: Yes: Nourished, Appropriately Dressed. No: Apparent Distress HEENT: positive: EOMI, HIEN, Normal ENT Inspection, Normal Voice Neck: positive: Trachea midline, Normal Thyroid, Supple. negative: Tender, Rigid Respiratory/Chest: positive: Lungs Clear, Normal Breath Sounds. negative: Chest Tender, Respiratory Distress Cardiovascular: positive: Regular Rhythm, Regular Rate Gastrointestinal/Abdominal: positive: Normal Bowel Sounds, Flat, Soft. negative : Tender Lymphatic: negative: Adenopathy, Tenderness Musculoskeletal: positive: Normal Inspection. negative: Decreased Range of Motion Extremity: positive: Normal Capillary Refill, Normal Inspection, Normal Range of Motion. negative: Tender Integumentary: positive: Normal Color, Dry, Warm Neurologic: positive: Fully Oriented, Alert, Normal Mood/Affect, Normal Response , Motor Strength 5/5 Heart Score/ECG Review - History History: Slightly suspicious - Electrocardiogram EKG: Normal - Age Age: 45-65 - Risk Factors Based on the list above the patient has:: No risk factors known - Troponin Troponin: </= normal limit - Score Heart Score - Total: 1 ED Treatment Course - LABORATORY CBC & Chemistry Diagram: 03/20/19 09:48 03/20/19 09:48 Medical Decision Making - Medical Decision Making 53 year old male currently rehabbing for etoh abuse presenting with sudden onset chest pain. EKG demonstrating rate 92, IA 150, QRS 78, QTc 455, normal axis and no ST or t-wave changes. Heart score 4 and patient improved prior to my interview. Will DC to [facility]. 03/20/19 10:21 Discharge - Discharge Information Problems reviewed: Yes Clinical Impression/Diagnosis: Chest pain Qualifiers: Chest pain type: unspecified Qualified Code(s): R07.9 - Chest pain, unspecified Condition: Improved Disposition: HOME - Admission No - Follow up/Referral Referrals: [facility] [Provider Group] - Patient Discharge Instructions Patient Printed Discharge Instructions: DI for Atypical Chest Pain Additional Instructions: Please take Tylenol or Motrin for any pains that you have. IF you have severe chest pain that does not improve. Please see the PCP on this sheet within a week of getting clean at your rehab. Please return to the ED if you have new or worsening symptoms. - Post Discharge Activity
[2019-03-20 10:24] LABS: BASO % 0.5 % (0-2.0); EOS % 1.8 % (0-4.5); HEMATOCRIT 41.5 % (35.4-49); HEMOGLOBIN 14.1 GM/dL (11.7-16.9); LYMPH % 28.1 % (8-40); MCH 33.5 pg (25.7-33.7); MEAN CELL VOLUME 98.4 fl (80-96); MEAN PLT VOLUME 8.2 fl (7.5-11.1); MONO % 7.2 % (3.8-10.2); NEUT % 62.4 % (42.8-82.8); PLATELET COUNT 160 K/MM3 (134-434); RBC 4.22 M/mm3 (4.00-5.60); WHITE BLOOD COUNT 5.6 K/mm3 (4.0-10.0)
[2019-03-20 10:35] LABS: INR 1.24 (0.83-1.09); PROTHROMBIN TIME (PATIENT) 14.7 SEC (9.7-13.0)
[2019-03-20] MEDS ORDERED: ACETAMINOPHEN 500 MG TABLET (FP) PO ONE (10:47)
[2019-03-20 10:58] LABS: ALBUMIN 3.1 g/dl (3.4-5.0); ALK PHOS 136 U/L (45-117); ANION GAP 7 MMOL/L (8-16); BILIRUBIN,TOTAL 0.6 mg/dL (0.2-1); BLOOD UREA NITROGEN 12.4 mg/dL (7-18); CALCIUM 8.9 mg/dL (8.5-10.1); CHLORIDE 100 mmol/L (98-107); CO2 25 mmol/L (21-32); CREATININE 0.8 mg/dL (0.55-1.3); GLUCOSE,RANDOM 101 mg/dL (74-106); SGOT/AST 110 U/L (15-37); SGPT/ALT 133 U/L (13-61); SODIUM 132 mmol/L (136-145); TOT PROT 8.1 g/dl (6.4-8.2)
[2019-03-20] MEDS ORDERED: ACETAMINOPHEN 325 MG TABLET (FP) ONE (11:03)
[2019-03-20 11:41] VITALS: BP 104/79; PULSE 97
== END 2019-03-20 12:20 | disposition home or self-care (01) ==
LOC: JER 09:07
DX: R10.13 Epigastric pain (principal); I10 Essential (primary) hypertension; G40.909 Epilepsy, unspecified, not intractable, without status epilepticus; M19.90 Unspecified osteoarthritis, unspecified site; F10.10 Alcohol abuse, uncomplicated; Z59.0 Homelessness; Z87.09 Personal history of other diseases of the respiratory system
CPT/HCPCS: 36415; 71045-TC-FY; 80053; 82550; 84484; 85025; 85610; 99283-25

== ENCOUNTER 2020-01-29 11:06 | Inpatient (IN) | payer OTHER ==
[2020-01-29] MEDS ORDERED: MAGNESIUM CITRATE 300 ML BOTTLE PO PRN (12:52)
[2020-01-29] MEDS ORDERED: MAGNESIUM HYDROX 2400MG/30ML ORAL SUSPENSION 30 ML CUP PO PRN (12:52)
[2020-01-29] MEDS ORDERED: IBUPROFEN 400 MG TABLET (FP) PO PRN (12:52)
[2020-01-29] MEDS ORDERED: MENTHOL/PHENOL 1 EACH UD MM PRN (12:52)
[2020-01-29] MEDS ORDERED: BISMUTH SUBSALICYLATE 262 MG/15 ML BTL PO PRN (12:52)
[2020-01-29] MEDS ORDERED: NICOTINE POLACRILEX 2 MG GUM BUC PRN (12:52)
[2020-01-29] MEDS ORDERED: MAG HYDROX/AL HYDROX/SIMETH 30 ML UNIT-DOSE CUP PO PRN (12:52)
[2020-01-29] MEDS ORDERED: ACETAMINOPHEN 325 MG TABLET (FP) PO PRN (12:52)
[2020-01-29] MEDS ORDERED: chlordiazePOXIDE HCL 25 MG CAPSULE PO PRN (12:52)
[2020-01-29 13:44] VITALS: BMI 24.0
[2020-01-29] MEDS: hydrOXYzine PAMOATE 25 MG CAPSULE (FP) PO SCH ×3 (14:37→22:26)
[2020-01-29] MEDS: PRENATAL VITAMINS W/ FOLIC ACID TABLET (FP) PO SCH (14:37)
[2020-01-29] MEDS: NICOTINE 14 MG/24 HOURS TOPICAL PATCH TD SCH (14:38)
[2020-01-29 17:20] LABS: HEMATOCRIT 43.4 % (35.4-49); HEMOGLOBIN 14.4 GM/dL (11.7-16.9); MCH 33.1 pg (25.7-33.7); MCHC 33.1 g/dl (32.0-35.9); MEAN CELL VOLUME 99.9 fl (80-96); MEAN PLT VOLUME 8.8 fl (7.5-11.1); PLATELET COUNT 178 K/MM3 (134-434); RBC 4.35 M/mm3 (4.00-5.60); RDW 12.6 % (11.9-15.9); WHITE BLOOD COUNT 6.3 K/mm3 (4.0-10.0)
[2020-01-29 17:21] LABS: POTASSIUM 4.2 mmol/L (3.5-5.1)
[2020-01-29 17:24] LABS: BLOOD UREA NITROGEN 13.2 mg/dL (7-18); CALCIUM 9.7 mg/dL (8.5-10.1)
[2020-01-29 17:27] LABS: CREATININE 0.9 mg/dL (0.55-1.3)
[2020-01-29 17:29] LABS: BILIRUBIN,TOTAL 0.5 mg/dL (0.2-1); TOT PROT 9.1 g/dl (6.4-8.2)
[2020-01-29] MEDS: chlordiazePOXIDE HCL 25 MG CAPSULE PO SCH ×2 (17:51→22:26)
[2020-01-29] MEDS: ONDANSETRON *ODT* 4 MG TABLET SL PRN (17:55)
[2020-01-29] MEDS: ACETAMINOPHEN 325 MG TABLET (FP) PO PRN (17:56)
[2020-01-29] MEDS ORDERED: TRIMETHOBENZAMIDE HCL 200MG/2ML INJ IM PRN (19:48)
[2020-01-29] MEDS ORDERED: PANTOPRAZOLE 40 MG TABLET PO ONE (19:48)
[2020-01-29] MEDS: THIAMINE HCL 100 MG TABLET (FP) PO SCH (22:26)
[2020-01-29] MEDS: MELATONIN 5 MG TABLETS PO SCH (22:26)
[2020-01-30] MEDS: chlordiazePOXIDE HCL 25 MG CAPSULE PO SCH ×4 (05:27→22:14)
[2020-01-30] MEDS: hydrOXYzine PAMOATE 25 MG CAPSULE (FP) PO SCH ×5 (05:27→22:16)
[2020-01-30] MEDS ORDERED: ALBUTEROL SO4 HFA INHALER IH PRN (10:09)
[2020-01-30] MEDS: PANTOPRAZOLE 40 MG TABLET PO SCH (10:20)
[2020-01-30] MEDS: PRENATAL VITAMINS W/ FOLIC ACID TABLET (FP) PO SCH (10:20)
[2020-01-30] MEDS: METHOCARBAMOL 500 MG TABLET PO PRN (10:21)
[2020-01-30] MEDS: NICOTINE 14 MG/24 HOURS TOPICAL PATCH TD SCH (10:22)
[2020-01-30] MEDS ORDERED: ONDANSETRON *ODT* 4 MG TABLET SL ONE (10:24)
[2020-01-30] MEDS: amLODIPine BESYLATE 10 MG TABLET (FP) PO SCH (11:29)
[2020-01-30] MEDS: ACETAMINOPHEN 325 MG TABLET (FP) PO PRN (17:02)
[2020-01-30] MEDS: LIDOCAINE 5% TOPICAL PATCH TP SCH (18:11)
[2020-01-30] MEDS: MELATONIN 5 MG TABLETS PO SCH (22:12)
[2020-01-30] MEDS: THIAMINE HCL 100 MG TABLET (FP) PO SCH (22:12)
[2020-01-30] MEDS: LIDOCAINE PATCH REMOVAL MC SCH (22:14)
[2020-01-31] MEDS: chlordiazePOXIDE HCL 25 MG CAPSULE PO SCH ×4 (05:24→22:08)
[2020-01-31] MEDS: hydrOXYzine PAMOATE 25 MG CAPSULE (FP) PO SCH ×5 (05:24→22:07)
[2020-01-31] MEDS: amLODIPine BESYLATE 10 MG TABLET (FP) PO SCH (10:39)
[2020-01-31] MEDS: PRENATAL VITAMINS W/ FOLIC ACID TABLET (FP) PO SCH (10:39)
[2020-01-31] MEDS: PANTOPRAZOLE 40 MG TABLET PO SCH (10:39)
[2020-01-31] MEDS: NICOTINE 14 MG/24 HOURS TOPICAL PATCH TD SCH (10:39)
[2020-01-31] MEDS: LIDOCAINE 5% TOPICAL PATCH TP SCH (10:40)
[2020-01-31] MEDS: ONDANSETRON *ODT* 4 MG TABLET SL PRN (12:17)
[2020-01-31] MEDS: METHOCARBAMOL 500 MG TABLET PO PRN (12:53)
[2020-01-31] MEDS ORDERED: MASKS NR ONE (17:38)
[2020-01-31] MEDS: ACETAMINOPHEN 325 MG TABLET (FP) PO PRN (17:46)
[2020-01-31] MEDS: THIAMINE HCL 100 MG TABLET (FP) PO SCH (22:08)
[2020-01-31] MEDS: MELATONIN 5 MG TABLETS PO SCH (22:08)
[2020-01-31] MEDS: LIDOCAINE PATCH REMOVAL MC SCH (22:09)
[2020-02-01] MEDS ORDERED: chlordiazePOXIDE HCL 10 MG CAPSULE PO PRN
[2020-02-01] MEDS: hydrOXYzine PAMOATE 25 MG CAPSULE (FP) PO SCH ×5 (05:56→22:10)
[2020-02-01] MEDS: chlordiazePOXIDE HCL 10 MG CAPSULE PO SCH ×4 (05:57→22:10)
[2020-02-01] MEDS: ONDANSETRON *ODT* 4 MG TABLET SL PRN (07:28)
[2020-02-01] MEDS ORDERED: TRIMETHOBENZAMIDE HCL 200MG/2ML INJ IM PRN (08:47)
[2020-02-01] MEDS: LIDOCAINE 5% TOPICAL PATCH TP SCH (10:14)
[2020-02-01] MEDS: amLODIPine BESYLATE 10 MG TABLET (FP) PO SCH (10:15)
[2020-02-01] MEDS: NICOTINE 14 MG/24 HOURS TOPICAL PATCH TD SCH (10:15)
[2020-02-01] MEDS: PANTOPRAZOLE 40 MG TABLET PO SCH (10:15)
[2020-02-01] MEDS: PRENATAL VITAMINS W/ FOLIC ACID TABLET (FP) PO SCH (10:18)
[2020-02-01] MEDS: METHOCARBAMOL 500 MG TABLET PO PRN (14:47)
[2020-02-01] MEDS: THIAMINE HCL 100 MG TABLET (FP) PO SCH (22:10)
[2020-02-01] MEDS: MELATONIN 5 MG TABLETS PO SCH (22:10)
[2020-02-01] MEDS: ACETAMINOPHEN 325 MG TABLET (FP) PO PRN (22:12)
[2020-02-01] MEDS: LIDOCAINE PATCH REMOVAL MC SCH (22:14)
[2020-02-02] MEDS: hydrOXYzine PAMOATE 25 MG CAPSULE (FP) PO SCH ×5 (05:36→22:37)
[2020-02-02] MEDS: chlordiazePOXIDE HCL 10 MG CAPSULE PO SCH ×2 (05:36→17:19)
[2020-02-02] MEDS: amLODIPine BESYLATE 10 MG TABLET (FP) PO SCH (10:05)
[2020-02-02] MEDS: NICOTINE 14 MG/24 HOURS TOPICAL PATCH TD SCH (10:05)
[2020-02-02] MEDS: PANTOPRAZOLE 40 MG TABLET PO SCH (10:05)
[2020-02-02] MEDS: LIDOCAINE 5% TOPICAL PATCH TP SCH (10:05)
[2020-02-02] MEDS: PRENATAL VITAMINS W/ FOLIC ACID TABLET (FP) PO SCH (10:05)
[2020-02-02] MEDS: ONDANSETRON *ODT* 4 MG TABLET SL PRN (12:25)
[2020-02-02] MEDS: METHOCARBAMOL 500 MG TABLET PO PRN (17:28)
[2020-02-02 21:33] VITALS: TEMP 97.3
[2020-02-02] MEDS: THIAMINE HCL 100 MG TABLET (FP) PO SCH (22:37)
[2020-02-02] MEDS: MELATONIN 5 MG TABLETS PO SCH (22:37)
[2020-02-02] MEDS: LIDOCAINE PATCH REMOVAL MC SCH (23:27)
[2020-02-03] MEDS ORDERED: chlordiazePOXIDE HCL 10 MG CAPSULE PO ONE (05:00)
[2020-02-03] MEDS: hydrOXYzine PAMOATE 25 MG CAPSULE (FP) PO SCH (05:36)
[2020-02-03 06:51] VITALS: BP 100/62; PULSE 67
== END 2020-02-03 09:20 | disposition home or self-care (01) | DRG 773 ==
LOC: YASAS 11:06 → Y3N 13:33
PROVIDERS: ADMIT Allergy & Immunology; ATTEND Allergy & Immunology
PROC: HZ2ZZZZ Detoxification Services for Substance Abuse Treatment (ICD-10-PCS; principal; 2020-01-29)
DX: F10.230 Alcohol dependence with withdrawal, uncomplicated (principal); F11.10 Opioid abuse, uncomplicated; F12.10 Cannabis abuse, uncomplicated; F17.210 Nicotine dependence, cigarettes, uncomplicated; I10 Essential (primary) hypertension; M47.9 Spondylosis, unspecified; J45.20 Mild intermittent asthma, uncomplicated; R00.1 Bradycardia, unspecified; I49.9 Cardiac arrhythmia, unspecified; R73.09 Other abnormal glucose; R26.2 Difficulty in walking, not elsewhere classified; Z99.89 Dependence on other enabling machines and devices; Z86.19 Personal history of other infectious and parasitic diseases; Z56.0 Unemployment, unspecified
CPT/HCPCS: 36415; 80053; 82962; 85027; 86593; 86780; 93005; 93010; C9803; Q0162; U0003

== ENCOUNTER 2024-02-18 10:37 | Inpatient (IN) | payer OTHER ==
[2024-02-18 11:31] VITALS: BMI 23.3
[2024-02-18] MEDS ORDERED: ACETAMINOPHEN 325 MG TABLET (FP) PO PRN (13:21)
[2024-02-18] MEDS ORDERED: IBUPROFEN 400 MG TABLET (FP) PO PRN (13:21)
[2024-02-18] MEDS ORDERED: NALOXONE (NARCAN) HCL 4 MG/0.1 ML SPRAY NS PRN (13:21)
[2024-02-18] MEDS ORDERED: LOPERAMIDE HCL 2 MG CAPSULE PO PRN (13:21)
[2024-02-18] MEDS ORDERED: guaiFENesin 600 MG TABLET.ER (FP) PO PRN (13:21)
[2024-02-18] MEDS ORDERED: BENZOCAINE/MENTHOL (CHLORASEPTIC ) LOZENGE MM PRN (13:21)
[2024-02-18] MEDS ORDERED: BENZONATATE 200 MG CAPSULE PO PRN (13:21)
[2024-02-18] MEDS: amLODIPine BESYLATE 10 MG TABLET (FP) PO SCH (16:59)
[2024-02-18] MEDS: TUBERCULIN PPD 5 TU/0.1ML SYRINGE (IN PATIENT USE ONLY) ID ONE (17:00)
[2024-02-18] MEDS: IBUPROFEN 600 MG TABLET (FP) PO PRN (18:52)
[2024-02-18] MEDS: THIAMINE 100 MG TABLET PO SCH (21:13)
[2024-02-18] MEDS: METHOCARBAMOL 500 MG TABLET PO PRN (21:14)
[2024-02-18] MEDS: MELATONIN 5 MG TABLETS PO SCH (21:14)
[2024-02-19 09:11] LABS: POTASSIUM 4.9 mmol/L (3.5-5.1)
[2024-02-19 09:14] LABS: BLOOD UREA NITROGEN 20.5 mg/dL (7-18); CALCIUM 9.6 mg/dL (8.5-10.1)
[2024-02-19 09:18] LABS: CREATININE 1.1 mg/dL (0.55-1.3)
[2024-02-19 09:19] LABS: BILIRUBIN,TOTAL 0.3 mg/dL (0.2-1); TOT PROT 8.1 g/dl (6.4-8.2)
[2024-02-19 09:24] LABS: HEMATOCRIT 40.3 % (35.4-49); HEMOGLOBIN 13.3 GM/dL (11.7-16.9); MEAN PLT VOLUME 7.5 fl (7.5-11.1); PLATELET COUNT 342 10^3/uL (134-434); RBC 4.28 M/mm3 (4.00-5.60); RDW 14.6 % (11.9-15.9); WHITE BLOOD COUNT 7.5 K/mm3 (4.0-10.0)
[2024-02-19] MEDS: PRENATAL VITAMINS W/ FOLIC ACID TABLET (FP) PO SCH (09:39)
[2024-02-19] MEDS: NICOTINE 21 MG/24 HOURS TOPICAL PATCH TD SCH (09:40)
[2024-02-19] MEDS ORDERED: LOSARTAN POTASSIUM 50 MG TABLET PO SCH (16:00)
[2024-02-19] MEDS: HYDROCHLOROTHIAZIDE 12.5 MG CAPSULE (FP) PO SCH (16:51)
[2024-02-19] MEDS: LISINOPRIL 10 MG TABLET PO SCH (16:51)
[2024-02-19] MEDS: QUEtiapine FUMARATE 100 MG TABLET (FP) PO SCH (21:14)
[2024-02-19 22:29] LABS: PH,URINE 8.5 (5.0-8.0); URINE APPEARANCE CLEAR; URINE BILIRUBIN NEGATIVE (NEGATIVE); URINE COLOR YELLOW; URINE GLUCOSE (UA) NEGATIVE (NEGATIVE); URINE KETONE NEGATIVE (NEGATIVE); URINE LEUK ESTERASE NEGATIVE (NEGATIVE); URINE NITRITE NEGATIVE (NEGATIVE); URINE PROTEIN TRACE (NEGATIVE); URINE UROBILINOGEN 0.2 mg/dL (0.2-1.0)
[2024-02-23] MEDS: hydrOXYzine PAMOATE 25 MG CAPSULE (FP) PO PRN (12:01)
[2024-02-24] MEDS ORDERED: METHYL SALICYLATE/MENTHOL 30 GM TUBE TP PRN (13:30)
[2024-02-24] MEDS: TOLNAFTATE 1% CREAM 15 GM TUBE TP SCH (14:00)
[2024-02-25] MEDS: NICOTINE POLACRILEX 2 MG GUM BUC PRN (05:50)
[2024-02-26] MEDS: MAG HYDROX/AL HYDROX/SIMETH 30 ML UNIT-DOSE CUP PO PRN (08:13)
[2024-02-27] MEDS ORDERED: QUEtiapine FUMARATE 50 MG TABLET ONE (20:26)
[2024-02-29] MEDS: MAGNESIUM HYDROX 2400MG/30ML ORAL SUSPENSION 30 ML CUP PO PRN (07:44)
[2024-03-04 09:13] VITALS: RESP 18
[2024-03-04] MEDS: SELENIUM SULFIDE 2.25% 180 ML SHAMPOO TP SCH (09:52)
[2024-03-04] MEDS: DOCUSATE SODIUM 100 MG CAPSULE (FP) PO PRN (17:56)
[2024-03-04] MEDS: POLYETHYLENE GLYCOL (HEALTHYLAX) 3350 17 GM PACKET PO PRN (17:56)
[2024-03-05] MEDS ORDERED: QUEtiapine FUMARATE 50 MG TABLET ONE (20:38)
[2024-03-06 05:50] VITALS: TEMP 97.5
[2024-03-06 09:10] VITALS: BP 152/87; PULSE 95
[2024-03-06] MEDS: NALOXONE (NYS OPIOID OVERDOSE PROGRAM) 4 MG/0.1 ML SPRAY NS SCH (16:13)
== END 2024-03-06 16:20 | disposition home or self-care (01) | DRG 772 ==
LOC: YASAS 10:37 → Y3NR 13:43 → Y3W 02-21 11:42
PROVIDERS: ADMIT Psychiatry & Neurology Pain Medicine; ATTEND Family Medicine Addiction Medicine
PROC: HZ42ZZZ Group Counseling for Substance Abuse Treatment, Cognitive-Behavioral (ICD-10-PCS; principal; 2024-02-18)
DX: F14.20 Cocaine dependence, uncomplicated (principal); F12.20 Cannabis dependence, uncomplicated; F17.220 Nicotine dependence, chewing tobacco, uncomplicated; F19.282 Other psychoactive substance dependence with psychoactive substance-induced sleep disorder; F19.24 Other psychoactive substance dependence with psychoactive substance-induced mood disorder; F31.9 Bipolar disorder, unspecified; F41.9 Anxiety disorder, unspecified; G47.00 Insomnia, unspecified; H53.8 Other visual disturbances; H26.9 Unspecified cataract; I10 Essential (primary) hypertension; J45.909 Unspecified asthma, uncomplicated; K29.00 Acute gastritis without bleeding; Z99.89 Dependence on other enabling machines and devices
CPT/HCPCS: 36415; 71045-TC-FY; 80053; 80305; 80307; 81003; 82962; 85027; 86593; 86780; 87811; 93005; 93010